=== PATIENT | male | born 1965 | race Caucasian/White ===

== ENCOUNTER 2019-03-20 06:28 | Observation (INO) ==
[2019-03-20] MEDS ORDERED: Ipratropium/Albuterol Neb 3 ML IH ONE (06:34)
--- NOTE | 2019-03-20 06:46 | Emergency Department Note ---
Disposition Clinical Impression: CHF exacerbation Qualifiers: Heart failure type: unspecified Qualified Code(s): I50.9 - Heart failure, unspecified Atrial fibrillation Qualifiers: Atrial fibrillation type: unspecified Qualified Code(s): I48.91 - Unspecified atrial fibrillation Disposition: Admitted As Inpatient Condition: Good Time of Disposition: 09:57 SOB HPI - General Chief Complaint: ED Shortness of Breath/Dyspnea Stated Complaint: JONATHAN Time Seen by Provider: 03/20/19 06:33 Source: patient, family Mode of arrival: ambulatory Limitations: no limitations Nursing Notes Reviewed: Yes Vital Signs Reviewed: Yes - History of Present Illness Ill-appearing 53-year-old male presents by private vehicle for evaluation of shortness of breath. Patient has a history of COPD, atrial fibrillation, hypertension, hyperlipidemia, CABG, DVT, and PE. The patient states that yest erday evening, he had had multiple alcoholic beverages to drink. He also admits to taking a Suboxone that was given to him by a friend. He states that he believes he "passed out at" some point throughout the night. He awoke around 2:30 AM feeling very short of breath, and extremely diaphoretic. He presents diaphoretic, pale, and in mild respiratory distress. He denies any chest pain or pain with inspiration. He complains of nausea but denies any vomiting. He denies any abdominal pain. He denies any pain or swelling of the lower extremities. He does endorse several days worth of a cough that is productive of a greenish colored sputum. This cough and sputum are different than his [facility] COPD status. He is not on home oxygen at this point. He is supposed to be on Eliquis but admits to not taking his medication in several days. He is unsure whether or not he hit his head when he "passed out". His who is in the room was not present and is not able to give details of the event. He does admit to feeling lightheaded currently. Pt Subjective Complaint: shortness of breath Onset (ago): hour(s) Severity: moderate Consistency/Duration: constant Improves with: nothing Worsens with: exertion Known history of: COPD, PE, DVT Associated symptoms: Reports: cough, wheezing, sputum production, diaphoresis, nausea/vomiting (Nausea without vomiting). Denies: chest pain, pain with inspiration, fever, lower extremity pain, hemoptysis Treatment prior to arrival: none Cough Description: Involuntary Cough Frequency: Intermittent - Related Data Home oxygen amount: none Home Medications Medication Instructions Recorded Confirmed Carvedilol [Coreg] 1.5 tab PO BID 03/20/19 03/20/19 Diltiazem CD (24hr) [Cardizem CD] 120 mg PO BID 03/20/19 03/20/19 Furosemide [Lasix] 40 mg PO DAILY 03/20/19 03/20/19 Losartan [Cozaar] 25 mg PO DAILY 03/20/19 03/20/19 Lovastatin [Mevacor] 20 mg PO HS 03/20/19 03/20/19 Nitroglycerin [Nitrostat] 0.4 mg SL Q5MIN PRN 03/20/19 03/20/19 Rivaroxaban [Xarelto] 20 mg PO DAILY 03/20/19 03/20/19 raNITIdine HCl [Zantac] 150 mg PO BID 03/20/19 03/20/19 Allergies Allergy/AdvReac Type Severity Reaction Status Date / Time No Known Allergies Allergy Unverified 03/20/19 06:28 All systems ED: reviewed and negative except as stated. Review of Systems: As Per HPI Constitutional: Denies: fever, chills, weakness, weight change Eyes: Denies: eye pain, eye discharge, vision change ENT ED: Denies: ear pain, throat pain, dental pain, hearing loss, epistaxis, congestion, dysphagia Cardiovascular: Denies: chest pain, palpitations, dyspnea on exertion, edema, syncope Respiratory: Reports: as per HPI, cough, dyspnea, wheezes, sputum production. Denies: hemoptysis, stridor Gastrointestinal: Reports: as per HPI, nausea. Denies: abdominal pain, vomiting, diarrhea, constipation, hematemesis, melena, hematochezia Genitourinary: Denies: urgency, dysuria, frequency, hematuria Musculoskeletal: Denies: back pain, neck pain, arthralgia, myalgia Integumentary: Denies: rash, abrasion, lesions Neurological: Denies: headache, weakness, numbness, paresthesias, confusion, abnormal gait, vertigo Psychiatric: Denies: anxiety, depression, suicidal thoughts, homicidal thoughts, auditory hallucinations, visual hallucinations Endocrine: Denies: fatigue Hematological/Lymphatic: Denies: easy bleeding, easy bruising Allergic/Immunologic: Denies: facial swelling, urticaria Past Medical History - Past Medical History Attestation: Yes The following information was validated with the patient. Source: patient, nursing notes reviewed Medical history: Reports: hypertension, myocardial infarction - Social History Smoking Status: Former smoker Smokeless Tobacco Status: No Alcohol use: Reports: none Drug use: Reports: none Physical Exam - General Limitations: no limitations General appearance: appears intoxicated, other (Pale, diaphoretic) - Head Head exam: atraumatic, normocephalic, normal inspection - Expanded Head Exam Head exam physicial: Absent: laceration, abrasion, contusion, hematoma - Eye Eye exam: Present: normal appearance, PERRL, EOMI - Expanded Eye Exam Pupils: Bilateral: regular, round, reactive, size (3) - ENT ENT exam: mucous membranes moist - Neck Neck exam: Present: normal inspection, full ROM - Chest Chest inspection: Present: normal inspection, symmetric chest wall rise - Respiratory Respiratory exam: Present: respiratory distress (Mild), wheezes (Faint expiratory wheezes noted throughout, more prominent the left lower lobe), ac cessory muscle use (Personal breathing), prolonged expiratory phase, other (Lungs sounds coarse throughout the periphery). Absent: stridor - Cardiovascular Cardiovascular exam: Present: tachycardia, irregular rhythm - Abdominal Exam Abdominal exam: Present: soft, Non-Tender, normal bowel sounds - Extremities Exam Extremities exam: Present: normal inspection, full ROM. Absent: pedal edema, calf tenderness - Neurological Exam Neurological exam: Present: alert, oriented X3 - Psychiatric Psychiatric exam: Present: anxious - Skin Skin exam: Present: intact, diaphoresis, pallor. Absent: cyanosis, erythema, mottled Course Course Narrative: I discussed this patient's case with Dr. Robertson, ED attending. He has had a [id number] evaluation with patient and agrees with admission to the hospital service for an acute exacerbation of congestive heart failure. The patient stated significant improvement after the administration of DuoNeb breathing treatments and IV Lasix. 0950: I spoke with Dr. Gastelum the hospital service who has accepted the patient for admission to the hospitalist care. Vital Signs Temperature 97.5 F L 03/20/19 06:29 Pulse Rate 137 03/20/19 06:29 Respiratory Rate 20 03/20/19 06:29 Blood Pressure 162/116 03/20/19 06:29 O2 Sat by Pulse Oximetry 98 03/20/19 06:29 Temperature 97.5 F L 03/20/19 06:29 Pulse Rate 101 03/20/19 08:38 Respiratory Rate 16 03/20/19 08:38 Blood Pressure 151/112 03/20/19 08:38 O2 Sat by Pulse Oximetry 95 03/20/19 08:38 Oxygen Delivery Oxygen Delivery Room Air Shortness of Breath/Dyspnea - Medical Records Medical records reviewed: Yes I reviewed the patient's medical records. - Lab Data Lab results reviewed: Yes I reviewed the patient's lab results. Lab results narrative: Lab Results 03/20/19 03/20/19 03/20/19 Range/Units 06:34 06:34 06:34 WBC 6.4 (4.3-11.1) K/mcL RBC 4.31 (4.19-5.50) M/mcL Hgb 14.2 (12.9-16.9) g/dL Hct 41.1 (37.5-50.1) % MCV 95.4 (83.0-100.0) fL MCH 32.9 (28.0-33.3) pg MCHC 34.5 (31.6-35.5) g/dL RDW 14.6 H (11.5-14.5) % Plt Count 136 L (140-400) K/mcL MPV 9.7 (9.4-12.4) fL Immature Gran % 0.3 (0-4) % Seg Neutrophils % 64.5 % Lymphocytes % 23.4 % Monocytes % 10.6 % Eosinophils % 0.6 % Basophils % 0.6 % Neutrophils # 4.1 (1.6-8.9) K/mcL Lymphocytes # 1.5 (0.6-4.6) K/mcL Monocytes # 0.7 (0.0-1.3) K/mcL Eosinophils # 0.0 (0.0-0.6) K/mcL Basophils # 0.0 (0.0-0.2) K/mcL PT 12.2 H (9.4-12.1) Seconds INR 1.1 APTT 31.5 (26.0-36.0) Seconds D-Dimer 364 (0-500) ng/mLFEU Sodium 131 L (136-145) mEq/L Potassium 3.9 (3.5-5.1) mEq/L Chloride 91 L (98-107) mEq/L Carbon Dioxide 20 L (23-29) mEq/L BUN 11 (6-20) mg/dL Creatinine 0.75 (0.70-1.30) mg/dL Est GFR ( Amer) > 60 (> 60) Est GFR (Non-Af Amer) > 60 (> 60) BUN/Creatinine Ratio 15 (6-26) Glucose 137 H (70-105) mg/dL POC Glucose (70-99) mg/dL Calculated Osmolality 274 L (280-300) Calcium 9.2 (8.6-10.3) mg/dL Total Bilirubin 1.0 (0.3-1.0) mg/dL Direct Bilirubin 0.3 H (0.0-0.2) mg/dL Indirect Bilirubin 0.7 (0.0-1.2) mg/dL AST 108 H (13-39) Units/L ALT 51 (7-52) Units/L Alkaline Phosphatase 110 H (34-104) Units/L Troponin I 0.05 H* (< 0.04) ng/mL B-Natriuretic Peptide (Less than 100) pg/mL Serum Total Protein 7.7 (6.4-8.9) g/dL Albumin 4.8 (3.5-5.7) g/dL Globulin 2.9 (2.4-3.5) g/dL Albumin/Globulin Ratio 1.7 (1.1-2.2) Urine Color (Yellow) Urine Clarity (Clear) Urine pH (5.0-8.0) pH Units Ur Specific Harper (1.010-1.025) Urine Protein (Neg-Trace) mg/dL Urine Glucose (UA) (Normal) mg/dL Urine Ketones (Negative) mg/dL Urine Blood (Negative) Urine Nitrite (Negative) Urine Bilirubin (Negative) Urine Urobilinogen (Normal) mg/dL Ur Leukocyte Esterase (Negative) Urine Microscopic RBC (0-3) per hpf Urine Microscopic WBC (0-3) per hpf Ur Squamous Epith Cells (None-Few) per lpf Urine Bacteria (None-Few) per hpf Hyaline Casts (None-Few) per lpf Ur Culture Indicated? (NO) Urine Opiates Screen (Hrewfn=963) ng/mL Ur Barbiturates Screen (Liuver=694) ng/mL Ur Phencyclidine Scrn (Cutoff=25) ng/mL Ur Amphetamines Screen (Dccfdm=8700) ng/mL U Benzodiazepines Scrn (Ifjjjd=882) ng/mL Urine Cocaine Screen (Cutoff= 300) ng/mL U Marijuana (THC) Screen (Cutoff = 50) ng/mL Ur Drug Screen Interp Ethyl Alcohol (Less than 10) mg/dL 03/20/19 03/20/19 03/20/19 Range/Units 06:34 06:34 06:42 WBC (4.3-11.1) K/mcL RBC (4.19-5.50) M/mcL Hgb (12.9-16.9) g/dL Hct (37.5-50.1) % MCV (83.0-100.0) fL MCH (28.0-33.3) pg MCHC (31.6-35.5) g/dL RDW (11.5-14.5) % Plt Count (140-400) K/mcL MPV (9.4-12.4) fL Immature Gran % (0-4) % Seg Neutrophils % % Lymphocytes % % Monocytes % % Eosinophils % % Basophils % % Neutrophils # (1.6-8.9) K/mcL Lymphocytes # (0.6-4.6) K/mcL Monocytes # (0.0-1.3) K/mcL Eosinophils # (0.0-0.6) K/mcL Basophils # (0.0-0.2) K/mcL PT (9.4-12.1) Seconds INR APTT (26.0-36.0) Seconds D-Dimer (0-500) ng/mLFEU Sodium (136-145) mEq/L Potassium (3.5-5.1) mEq/L Chloride (98-107) mEq/L Carbon Dioxide (23-29) mEq/L BUN (6-20) mg/dL Creatinine (0.70-1.30) mg/dL Est GFR ( Amer) (> 60) Est GFR (Non-Af Amer) (> 60) BUN/Creatinine Ratio (6-26) Glucose (70-105) mg/dL POC Glucose 116 H (70-99) mg/dL Calculated Osmolality (280-300) Calcium (8.6-10.3) mg/dL Total Bilirubin (0.3-1.0) mg/dL Direct Bilirubin (0.0-0.2) mg/dL Indirect Bilirubin (0.0-1.2) mg/dL AST (13-39) Units/L ALT (7-52) Units/L Alkaline Phosphatase (34-104) Units/L Troponin I (< 0.04) ng/mL B-Natriuretic Peptide 643 H (Less than 100) pg/mL Serum Total Protein (6.4-8.9) g/dL Albumin (3.5-5.7) g/dL Globulin (2.4-3.5) g/dL Albumin/Globulin Ratio (1.1-2.2) Urine Color (Yellow) Urine Clarity (Clear) Urine pH (5.0-8.0) pH Units Ur Specific Harper (1.010-1.025) Urine Protein (Neg-Trace) mg/dL Urine Glucose (UA) (Normal) mg/dL Urine Ketones (Negative) mg/dL Urine Blood (Negative) Urine Nitrite (Negative) Urine Bilirubin (Negative) Urine Urobilinogen (Normal) mg/dL Ur Leukocyte Esterase (Negative) Urine Microscopic RBC (0-3) per hpf Urine Microscopic WBC (0-3) per hpf Ur Squamous Epith Cells (None-Few) per lpf Urine Bacteria (None-Few) per hpf Hyaline Casts (None-Few) per lpf Ur Culture Indicated? (NO) Urine Opiates Screen (Djcjjh=504) ng/mL Ur Barbiturates Screen (Ohmwtb=399) ng/mL Ur Phencyclidine Scrn (Cutoff=25) ng/mL Ur Amphetamines Screen (Hjgloy=5957) ng/mL U Benzodiazepines Scrn (Agqdnj=292) ng/mL Urine Cocaine Screen (Cutoff= 300) ng/mL U Marijuana (THC) Screen (Cutoff = 50) ng/mL Ur Drug Screen Interp Ethyl Alcohol 129 H (Less than 10) mg/dL 03/20/19 03/20/19 Range/Units 08:03 08:03 WBC (4.3-11.1) K/mcL RBC (4.19-5.50) M/mcL Hgb (12.9-16.9) g/dL Hct (37.5-50.1) % MCV (83.0-100.0) fL MCH (28.0-33.3) pg MCHC (31.6-35.5) g/dL RDW (11.5-14.5) % Plt Count (140-400) K/mcL MPV (9.4-12.4) fL Immature Gran % (0-4) % Seg Neutrophils % % Lymphocytes % % Monocytes % % Eosinophils % % Basophils % % Neutrophils # (1.6-8.9) K/mcL Lymphocytes # (0.6-4.6) K/mcL Monocytes # (0.0-1.3) K/mcL Eosinophils # (0.0-0.6) K/mcL Basophils # (0.0-0.2) K/mcL PT (9.4-12.1) Seconds INR APTT (26.0-36.0) Seconds D-Dimer (0-500) ng/mLFEU Sodium (136-145) mEq/L Potassium (3.5-5.1) mEq/L Chloride (98-107) mEq/L Carbon Dioxide (23-29) mEq/L BUN (6-20) mg/dL Creatinine (0.70-1.30) mg/dL Est GFR ( Amer) (> 60) Est GFR (Non-Af Amer) (> 60) BUN/Creatinine Ratio (6-26) Glucose (70-105) mg/dL POC Glucose (70-99) mg/dL Calculated Osmolality (280-300) Calcium (8.6-10.3) mg/dL Total Bilirubin (0.3-1.0) mg/dL Direct Bilirubin (0.0-0.2) mg/dL Indirect Bilirubin (0.0-1.2) mg/dL AST (13-39) Units/L ALT (7-52) Units/L Alkaline Phosphatase (34-104) Units/L Troponin I (< 0.04) ng/mL B-Natriuretic Peptide (Less than 100) pg/mL Serum Total Protein (6.4-8.9) g/dL Albumin (3.5-5.7) g/dL Globulin (2.4-3.5) g/dL Albumin/Globulin Ratio (1.1-2.2) Urine Color Dark Yellow (Yellow) Urine Clarity Clear (Clear) Urine pH 5.5 (5.0-8.0) pH Units Ur Specific Harper 1.008 L (1.010-1.025) Urine Protein 100 H (Neg-Trace) mg/dL Urine Glucose (UA) Normal (Normal) mg/dL Urine Ketones Trace H (Negative) mg/dL Urine Blood Trace H (Negative) Urine Nitrite Negative (Negative) Urine Bilirubin Negative (Negative) Urine Urobilinogen Normal (Normal) mg/dL Ur Leukocyte Esterase Negative (Negative) Urine Microscopic RBC 0-3 (0-3) per hpf Urine Microscopic WBC 0-3 (0-3) per hpf Ur Squamous Epith Cells Moderate H (None-Few) per lpf Urine Bacteria None Seen (None-Few) per hpf Hyaline Casts None Seen (None-Few) per lpf Ur Culture Indicated? NO (NO) Urine Opiates Screen Negative (Oqjhuz=053) ng/mL Ur Barbiturates Screen Negative (Sriacd=023) ng/mL Ur Phencyclidine Scrn Negative (Cutoff=25) ng/mL Ur Amphetamines Screen Negative (Zmhpkp=1932) ng/mL U Benzodiazepines Scrn Negative (Qwgqen=139) ng/mL Urine Cocaine Screen Negative (Cutoff= 300) ng/mL U Marijuana (THC) Screen Positive H (Cutoff = 50) ng/mL Ur Drug Screen Interp See Below Ethyl Alcohol (Less than 10) mg/dL Result diagrams: 03/20/19 06:34 03/20/19 06:34 Lab Results 03/20/19 03/20/19 03/20/19 Range/Units 06:34 06:34 06:34 WBC 6.4 (4.3-11.1) K/mcL RBC 4.31 (4.19-5.50) M/mcL Hgb 14.2 (12.9-16.9) g/dL Hct 41.1 (37.5-50.1) % MCV 95.4 (83.0-100.0) fL MCH 32.9 (28.0-33.3) pg MCHC 34.5 (31.6-35.5) g/dL RDW 14.6 H (11.5-14.5) % Plt Count 136 L (140-400) K/mcL MPV 9.7 (9.4-12.4) fL Immature Gran % 0.3 (0-4) % Seg Neutrophils % 64.5 % Lymphocytes % 23.4 % Monocytes % 10.6 % Eosinophils % 0.6 % Basophils % 0.6 % Neutrophils # 4.1 (1.6-8.9) K/mcL Lymphocytes # 1.5 (0.6-4.6) K/mcL Monocytes # 0.7 (0.0-1.3) K/mcL Eosinophils # 0.0 (0.0-0.6) K/mcL Basophils # 0.0 (0.0-0.2) K/mcL PT 12.2 H (9.4-12.1) Seconds INR 1.1 APTT 31.5 (26.0-36.0) Seconds D-Dimer 364 (0-500) ng/mLFEU Sodium 131 L (136-145) mEq/L Potassium 3.9 (3.5-5.1) mEq/L Chloride 91 L (98-107) mEq/L Carbon Dioxide 20 L (23-29) mEq/L BUN 11 (6-20) mg/dL Creatinine 0.75 (0.70-1.30) mg/dL Est GFR ( Amer) > 60 (> 60) Est GFR (Non-Af Amer) > 60 (> 60) BUN/Creatinine Ratio 15 (6-26) Glucose 137 H (70-105) mg/dL POC Glucose (70-99) mg/dL Calculated Osmolality 274 L (280-300) Calcium 9.2 (8.6-10.3) mg/dL Total Bilirubin 1.0 (0.3-1.0) mg/dL Direct Bilirubin 0.3 H (0.0-0.2) mg/dL Indirect Bilirubin 0.7 (0.0-1.2) mg/dL AST 108 H (13-39) Units/L ALT 51 (7-52) Units/L Alkaline Phosphatase 110 H (34-104) Units/L Troponin I 0.05 H* (< 0.04) ng/mL B-Natriuretic Peptide (Less than 100) pg/mL Serum Total Protein 7.7 (6.4-8.9) g/dL Albumin 4.8 (3.5-5.7) g/dL Globulin 2.9 (2.4-3.5) g/dL Albumin/Globulin Ratio 1.7 (1.1-2.2) Urine Color (Yellow) Urine Clarity (Clear) Urine pH (5.0-8.0) pH Units Ur Specific Harper (1.010-1.025) Urine Protein (Neg-Trace) mg/dL Urine Glucose (UA) (Normal) mg/dL Urine Ketones (Negative) mg/dL Urine Blood (Negative) Urine Nitrite (Negative) Urine Bilirubin (Negative) Urine Urobilinogen (Normal) mg/dL Ur Leukocyte Esterase (Negative) Urine Microscopic RBC (0-3) per hpf Urine Microscopic WBC (0-3) per hpf Ur Squamous Epith Cells (None-Few) per lpf Urine Bacteria (None-Few) per hpf Hyaline Casts (None-Few) per lpf Ur Culture Indicated? (NO) Urine Opiates Screen (Dbjayp=068) ng/mL Ur Barbiturates Screen (Spnxyu=498) ng/mL Ur Phencyclidine Scrn (Cutoff=25) ng/mL Ur Amphetamines Screen (Bsduui=0408) ng/mL U Benzodiazepines Scrn (Uviueq=945) ng/mL Urine Cocaine Screen (Cutoff= 300) ng/mL U Marijuana (THC) Screen (Cutoff = 50) ng/mL Ur Drug Screen Interp Ethyl Alcohol (Less than 10) mg/dL 03/20/19 03/20/19 03/20/19 Range/Units 06:34 06:34 06:42 WBC (4.3-11.1) K/mcL RBC (4.19-5.50) M/mcL Hgb (12.9-16.9) g/dL Hct (37.5-50.1) % MCV (83.0-100.0) fL MCH (28.0-33.3) pg MCHC (31.6-35.5) g/dL RDW (11.5-14.5) % Plt Count (140-400) K/mcL MPV (9.4-12.4) fL Immature Gran % (0-4) % Seg Neutrophils % % Lymphocytes % % Monocytes % % Eosinophils % % Basophils % % Neutrophils # (1.6-8.9) K/mcL Lymphocytes # (0.6-4.6) K/mcL Monocytes # (0.0-1.3) K/mcL Eosinophils # (0.0-0.6) K/mcL Basophils # (0.0-0.2) K/mcL PT (9.4-12.1) Seconds INR APTT (26.0-36.0) Seconds D-Dimer (0-500) ng/mLFEU Sodium (136-145) mEq/L Potassium (3.5-5.1) mEq/L Chloride (98-107) mEq/L Carbon Dioxide (23-29) mEq/L BUN (6-20) mg/dL Creatinine (0.70-1.30) mg/dL Est GFR ( Amer) (> 60) Est GFR (Non-Af Amer) (> 60) BUN/Creatinine Ratio (6-26) Glucose (70-105) mg/dL POC Glucose 116 H (70-99) mg/dL Calculated Osmolality (280-300) Calcium (8.6-10.3) mg/dL Total Bilirubin (0.3-1.0) mg/dL Direct Bilirubin (0.0-0.2) mg/dL Indirect Bilirubin (0.0-1.2) mg/dL AST (13-39) Units/L ALT (7-52) Units/L Alkaline Phosphatase (34-104) Units/L Troponin I (< 0.04) ng/mL B-Natriuretic Peptide 643 H (Less than 100) pg/mL Serum Total Protein (6.4-8.9) g/dL Albumin (3.5-5.7) g/dL Globulin (2.4-3.5) g/dL Albumin/Globulin Ratio (1.1-2.2) Urine Color (Yellow) Urine Clarity (Clear) Urine pH (5.0-8.0) pH Units Ur Specific Harper (1.010-1.025) Urine Protein (Neg-Trace) mg/dL Urine Glucose (UA) (Normal) mg/dL Urine Ketones (Negative) mg/dL Urine Blood (Negative) Urine Nitrite (Negative) Urine Bilirubin (Negative) Urine Urobilinogen (Normal) mg/dL Ur Leukocyte Esterase (Negative) Urine Microscopic RBC (0-3) per hpf Urine Microscopic WBC (0-3) per hpf Ur Squamous Epith Cells (None-Few) per lpf Urine Bacteria (None-Few) per hpf Hyaline Casts (None-Few) per lpf Ur Culture Indicated? (NO) Urine Opiates Screen (Bypesx=997) ng/mL Ur Barbiturates Screen (Sgrghf=035) ng/mL Ur Phencyclidine Scrn (Cutoff=25) ng/mL Ur Amphetamines Screen (Yawkhr=8578) ng/mL U Benzodiazepines Scrn (Zdmgpj=860) ng/mL Urine Cocaine Screen (Cutoff= 300) ng/mL U Marijuana (THC) Screen (Cutoff = 50) ng/mL Ur Drug Screen Interp Ethyl Alcohol 129 H (Less than 10) mg/dL 03/20/19 03/20/19 Range/Units 08:03 08:03 WBC (4.3-11.1) K/mcL RBC (4.19-5.50) M/mcL Hgb (12.9-16.9) g/dL Hct (37.5-50.1) % MCV (83.0-100.0) fL MCH (28.0-33.3) pg MCHC (31.6-35.5) g/dL RDW (11.5-14.5) % Plt Count (140-400) K/mcL MPV (9.4-12.4) fL Immature Gran % (0-4) % Seg Neutrophils % % Lymphocytes % % Monocytes % % Eosinophils % % Basophils % % Neutrophils # (1.6-8.9) K/mcL Lymphocytes # (0.6-4.6) K/mcL Monocytes # (0.0-1.3) K/mcL Eosinophils # (0.0-0.6) K/mcL Basophils # (0.0-0.2) K/mcL PT (9.4-12.1) Seconds INR APTT (26.0-36.0) Seconds D-Dimer (0-500) ng/mLFEU Sodium (136-145) mEq/L Potassium (3.5-5.1) mEq/L Chloride (98-107) mEq/L Carbon Dioxide (23-29) mEq/L BUN (6-20) mg/dL Creatinine (0.70-1.30) mg/dL Est GFR ( Amer) (> 60) Est GFR (Non-Af Amer) (> 60) BUN/Creatinine Ratio (6-26) Glucose (70-105) mg/dL POC Glucose (70-99) mg/dL Calculated Osmolality (280-300) Calcium (8.6-10.3) mg/dL Total Bilirubin (0.3-1.0) mg/dL Direct Bilirubin (0.0-0.2) mg/dL Indirect Bilirubin (0.0-1.2) mg/dL AST (13-39) Units/L ALT (7-52) Units/L Alkaline Phosphatase (34-104) Units/L Troponin I (< 0.04) ng/mL B-Natriuretic Peptide (Less than 100) pg/mL Serum Total Protein (6.4-8.9) g/dL Albumin (3.5-5.7) g/dL Globulin (2.4-3.5) g/dL Albumin/Globulin Ratio (1.1-2.2) Urine Color Dark Yellow (Yellow) Urine Clarity Clear (Clear) Urine pH 5.5 (5.0-8.0) pH Units Ur Specific Harper 1.008 L (1.010-1.025) Urine Protein 100 H (Neg-Trace) mg/dL Urine Glucose (UA) Normal (Normal) mg/dL Urine Ketones Trace H (Negative) mg/dL Urine Blood Trace H (Negative) Urine Nitrite Negative (Negative) Urine Bilirubin Negative (Negative) Urine Urobilinogen Normal (Normal) mg/dL Ur Leukocyte Esterase Negative (Negative) Urine Microscopic RBC 0-3 (0-3) per hpf Urine Microscopic WBC 0-3 (0-3) per hpf Ur Squamous Epith Cells Moderate H (None-Few) per lpf Urine Bacteria None Seen (None-Few) per hpf Hyaline Casts None Seen (None-Few) per lpf Ur Culture Indicated? NO (NO) Urine Opiates Screen Negative (Wsmbqo=438) ng/mL Ur Barbiturates Screen Negative (Tqibku=660) ng/mL Ur Phencyclidine Scrn Negative (Cutoff=25) ng/mL Ur Amphetamines Screen Negative (Rrmkue=0707) ng/mL U Benzodiazepines Scrn Negative (Hpszgw=641) ng/mL Urine Cocaine Screen Negative (Cutoff= 300) ng/mL U Marijuana (THC) Screen Positive H (Cutoff = 50) ng/mL Ur Drug Screen Interp See Below Ethyl Alcohol (Less than 10) mg/dL - Radiology Data Radiology results reviewed: Yes I reviewed the patient's radiology results. Chest X-Ray 03/20/19 06:34 IMPRESSION: Postsurgical changes. Mild cardiomegaly. Prominent perihilar markings suggesting mild vascular congestion. No gross effusion or extrapleural air is noted. D/ / Rafaela Hinton MD / Rafaela Hinton MD Interpreting Provider: Rafaela Hinton MD Cervical Spine CT 03/20/19 06:40 IMPRESSION: No acute abnormality of the cervical spine. D/ / Randall Sutherland MD / Randall Sutherland MD Interpreting Provider: Randall Sutherland MD Head CT 03/20/19 06:40 IMPRESSION: No acute intracranial abnormality. D/ / 03/20/2019 08:11:55 Ronny Samaniego MD / derrick Interpreting Provider: Ronny Samaniego MD - EKG Data EKG attestation: Yes I reviewed and interpreted this EKG. EKG results narrative: EKG reviewed by Dr. Dawn as well. EKG shows atrial fibrillation with rapid ventricular response at 147 bpm. QRS duration 105, QT/QTc interval 306/479. No significant ST elevations noted. Diffuse ST depression throughout however appears essentially unchanged from prior EKG dated from 10/29/15. Repeat EKG performed at 0802 hrs. EKG still shows atrial fibrillation with an improved heart rate of 113 bpm. QRS duration 110, QT/QTc interval 347/476. Much better waveform on this EKG. Again, diffuse ST segment depressions however these appear unchanged from prior EKGs. Attestation Statement - Attestation Attestation: Medical screening examination/treatment/procedure(s) were conducted as a shared visit with non-physician practitioner(s) and myself. I personally evaluated the patient during the encounter.EKG reviewed with PA. Agree with documentation. Patient presenting to the emergency department for shortness of breath. Patient significant past mental history including COPD, atrial fibrillation, hypertension, previous CABG, PE. Supposed to be on Zaroxolyn. Patient concern for possible syncopal event throughout the night. Patient did admit to drinking. Awoke diaphoretic and short of breath. 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 Blood work was obtained. Patient did have significant elevated alcohol as well as a BNP and concern for pulmonary vascular congestion on chest x-ray. Initial presenting heart rate was A. fib RVR with a heart rate in the 140s which is now 86 on reevaluation. Patient is undergoing further admission for further evaluation and management.
[2019-03-20 06:48] LABS: White Blood Count 6.4 K/mcL (4.3-11.1)
[2019-03-20 06:49] LABS: Basophils % 0.6 %; Eosinophils % 0.6 %; Hematocrit 41.1 % (37.5-50.1); Hemoglobin 14.2 g/dL (12.9-16.9); Immature Granulocytes % 0.3 % (0-4); Lymphocytes # 1.5 K/mcL (0.6-4.6); Lymphocytes % 23.4 %; Mean Corpuscular HGB Conc 34.5 g/dL (31.6-35.5); Mean Corpuscular Hemoglobin 32.9 pg (28.0-33.3); Mean Corpuscular Volume 95.4 fL (83.0-100.0); Mean Platelet Volume 9.7 fL (9.4-12.4); Monocytes # 0.7 K/mcL (0.0-1.3); Monocytes % 10.6 %; Neutrophils # 4.1 K/mcL (1.6-8.9); Platelet Count 136 K/mcL (140-400); Red Blood Count 4.31 M/mcL (4.19-5.50); Red Cell Distribution Width 14.6 % (11.5-14.5); Segmented Neutrophils % 64.5 %
[2019-03-20 06:56] LABS: INR 1.1; Prothrombin Time 12.2 Seconds (9.4-12.1)
[2019-03-20 06:58] LABS: Activated Partial Thrombo Time 31.5 Seconds (26.0-36.0)
[2019-03-20] MEDS ORDERED: Furosemide 40 MG/4 ML VIAL IVP ONE (07:44)
[2019-03-20 08:00] LABS: Troponin I 0.05 ng/mL (< 0.04)
[2019-03-20] MEDS ORDERED: Aspirin 81 MG TAB.CHEW PO ONE (08:24)
[2019-03-20 08:25] LABS: Bilirubin,Urine Negative (Negative); Blood,Urine Trace (Negative); Clarity,Urine Clear (Clear); Color,Urine Dark Yellow (Yellow); Glucose,Urine (UA) Normal (Normal); Ketones,Urine Trace mg/dL (Negative); Leukocyte Esterase,Urine Negative (Negative); Nitrite,Urine Negative (Negative); PH,Urine 5.5 pH Units (5.0-8.0); Protein,Urine 100 mg/dL (Neg-Trace); Specific Gravity,Urine 1.008 (1.010-1.025); Urobilinogen,Urine Normal (Normal)
[2019-03-20 08:26] LABS: Bacteria,Urine None Seen per hpf (None-Few); Hyaline Casts,Urine None Seen per lpf (None-Few); RBC,Urine 0-3 per hpf (0-3); Squamous Epithelial Cell,Urine Moderate per lpf (None-Few); WBC,Urine 0-3 per hpf (0-3)
[2019-03-20 08:51] LABS: Alanine Aminotransferase 51 Units/L (7-52); Albumin 4.8 g/dL (3.5-5.7); Albumin/Globulin Ratio 1.7 (1.1-2.2); Alkaline Phosphatase 110 Units/L (34-104); Aspartate Amino Transferase 108 Units/L (13-39); BUN/Creatinine Ratio 15 (6-26); Bilirubin,Direct 0.3 mg/dL (0.0-0.2); Bilirubin,Indirect 0.7 mg/dL (0.0-1.2); Blood Urea Nitrogen 11 mg/dL (6-20); Calcium 9.2 mg/dL (8.6-10.3); Carbon Dioxide 20 mEq/L (23-29); Chloride 91 mEq/L (98-107); Globulin 2.9 g/dL (2.4-3.5); Glucose 137 mg/dL (70-105); Osmolality,Calculated 274 (280-300); Potassium 3.9 mEq/L (3.5-5.1); Sodium 131 mEq/L (136-145); Total Protein 7.7 g/dL (6.4-8.9); eGFR For African Americans > 60 (> 60); eGFR For Non-African Americans > 60 (> 60)
[2019-03-20 09:31] LABS: Amphetamine Screen,Urine Negative ng/mL (Cutoff=1000); Barbiturate Screen,Urine Negative ng/mL (Cutoff=200); Benzodiazepines Screen,Urine Negative ng/mL (Cutoff=200); Cannabinoid Screen,Urine Positive ng/mL (Cutoff = 50); Cocaine Screen,Urine Negative ng/mL (Cutoff= 300); Opiate Screen,Urine Negative ng/mL (Cutoff=300); Phencyclidine Screen,Urine Negative ng/mL (Cutoff=25)
[2019-03-20] MEDS ORDERED: Nitroglycerin 0.4 MG TAB.SUBL SL PRN (09:53)
[2019-03-20] MEDS: *HR* Rivaroxaban 10 MG TABLET PO SCH (11:58)
[2019-03-20] MEDS: Diltiazem CD (24hr) 120 MG CAPSULE PO SCH ×2 (11:59→21:09)
[2019-03-20] MEDS ORDERED: *HR* LORazepam 2 MG/ML VIAL IVP PRN ×3 (12:53)
[2019-03-20] MEDS ORDERED: Naloxone 0.4 MG/ML INJ IVP PRN (12:59)
[2019-03-20] MEDS: Thiamine (B-1) 100 MG, Folic Acid 1 MG, MVI, adult with vitamin K 10 ML in 0.9 % Sodi... IVPB SCH (17:23)
--- NOTE | 2019-03-20 18:08 | Internal Med History&Physical ---
Date of Encounter: 03/20/19 Time of Encounter: 07:00 Internal Medicine - H&P: HPI History of present illness: 53-year-old male presents by private vehicle for evaluation of shortness of breath. Patient has a history of COPD, atrial fibrillation, hypertension, hyperlipidemia, CABG, DVT, and PE. Who presented progressive worsening of shortness of breath that started after midnight associated with sweating, nausea no vomiting. The patient stated that he consumed large amount of alcohol in ad dition to his Suboxone prior to going to bed and pretty much felt that he passed out. The patient denies chest shortness chest pain, progressive worsening of lower extremity edema, abdominal pain and diarrhea. The patient also reported that she been having productive cough of greenish sputum for the last several days. He stated that he is compliant with his medication For the blood thinner which he forgot several days in a row. On presentation the patient has an A. fib with rapid ventricular rate at rate of 137, platelet he did become control spontaneously, his chest x-ray revealed mild cardiomegaly, prominent perihilar markings suggesting mild vascular congestion, no gross effusion or extrapleural air. The patient was admitted for further evaluation and management of congestive heart failure exacerbation. Past Med Surg Social Fam HX - Past Medical History Medical history: hypertension, myocardial infarction Psychiatric history: no psych history - Past Surgical History Additional surgical history: open heart sx.--- unsure why - Social History Smoking Status: Former smoker Smokeless Tobacco Status: No Alcohol use: none Drug use: none - Family History Mother History Unknown: Yes Internal Medicine - H&P: Meds Carvedilol [Coreg] 37.5 tab PO BID 03/20/19 [History] Furosemide [Lasix] 40 mg PO DAILY 03/20/19 [History] Losartan [Cozaar] 25 mg PO DAILY 03/20/19 [History] Lovastatin [Mevacor] 20 mg PO DAILY 03/20/19 [History] Nitroglycerin [Nitrostat] 0.4 mg SL Q5MIN PRN 03/20/19 [History] Rivaroxaban [Xarelto] 20 mg PO DAILY 03/20/19 [History] raNITIdine HCl [Zantac] 150 mg PO BID 03/20/19 [History] Albuterol Sulfate [Albuterol Inhaler] 2 puff IH Q4-6H PRN 03/21/19 [History] dilTIAZem HCl [Diltiazem 24Hr ER] 120 mg PO BID 03/21/19 [History] Azithromycin [Zithromax] 250 mg PO DAILY #3 tablet 03/22/19 [Rx] Ipratropium/Albuterol Neb [Duoneb] 3 ml IH Q4HR #100 vial.neb 03/22/19 [Rx] Tiotropium [Spiriva] 18 mcg IH DAILYR #1 inh 03/22/19 [Rx] predniSONE [PredniSONE] 40 mg PO DAILY #3 tablet 03/22/19 [Rx] Allergy/AdvReac Type Severity Reaction Status Date / Time No Known Allergies Allergy Verified 03/21/19 17:36 All Systems PM: A 10-system review of systems was performed and is negative for pertinent findings except as documented above in the HPI. - Constitutional Vitals: Temp Pulse Resp BP Pulse Ox 98.1 F 82 22 154/100 96 03/20/19 17:19 03/20/19 17:19 03/20/19 17:19 03/20/19 17:19 03/20/19 17:19 General appearance: Present: A&O X 3 Exam: ` - Head Head exam: Present: atraumatic, normocephalic - Neck Neck exam general surgery: Present: supple, trachea midline. Absent: lymphadenopathy - Respiratory Respiratory exam: Present: rales. Absent: accessory muscle use, rhonchi, wheezes - Cardiovascular Cardiovascular exam: Present: RRR, +S1, +S2. Absent: diastolic murmur, gallop, rubs, systolic murmur - GI/Abdominal GI/Abdominal exam: Present: normal bowel sounds, soft, no peritoneal signs. Absent: distended, tenderness - Extremities Exam Extremities exam: Present: pedal edema Internal Med - H&P Results - Labs CBC & Chem 7: 03/22/19 03:57 03/22/19 03:57 Labs: Short CBC 03/20/19 Range/Units 06:34 WBC 6.4 (4.3-11.1) K/mcL Hgb 14.2 (12.9-16.9) g/dL Hct 41.1 (37.5-50.1) % Plt Count 136 L (140-400) K/mcL Neutrophils # 4.1 (1.6-8.9) K/mcL BMP 03/20/19 06:34 Sodium 131 L Potassium 3.9 Chloride 91 L Carbon Dioxide 20 L BUN 11 Creatinine 0.75 Glucose 137 H Calcium 9.2 Cardiac Enzymes 03/20/19 03/20/19 Range/Units 06:34 13:09 Troponin I 0.05 H* 0.05 H* (< 0.04) ng/mL Liver Function 03/20/19 Range/Units 06:34 Total Bilirubin 1.0 (0.3-1.0) mg/dL Direct Bilirubin 0.3 H (0.0-0.2) mg/dL AST 108 H (13-39) Units/L ALT 51 (7-52) Units/L Alkaline Phosphatase 110 H (34-104) Units/L Albumin 4.8 (3.5-5.7) g/dL Urine 03/20/19 Range/Units 08:03 Urine Color Dark Yellow (Yellow) Urine Clarity Clear (Clear) Urine pH 5.5 (5.0-8.0) pH Units Ur Specific [place] 1.008 L (1.010-1.025) Urine Protein 100 H (Neg-Trace) mg/dL Urine Glucose (UA) Normal (Normal) mg/dL - Impressions ITS Impressions Chest X-Ray 03/20/19 06:34 IMPRESSION: Postsurgical changes. Mild cardiomegaly. Prominent perihilar markings suggesting mild vascular congestion. No gross effusion or extrapleural air is noted. D/ / Rafaela Hinton MD / Rafaela Hinton MD Interpreting Provider: Rafaela Hinton MD Cervical Spine CT 03/20/19 06:40 IMPRESSION: No acute abnormality of the cervical spine. D/ / Randall Sutherland MD / Randall Sutherland MD Interpreting Provider: Randall Sutherland MD Head CT 03/20/19 06:40 IMPRESSION: No acute intracranial abnormality. D/ / 03/20/2019 08:11:55 Ronny Samaniego MD / derrick Interpreting Provider: Ronny Samaniego MD - Assessment and Plan (1) CHF exacerbation Status: Acute Assessment and plan: - SOB due to CHF exacerbation due to ?? Noncompliance R/O ischemia DD: *Bronchitis *Pneumonia PLAN: - CPP x 1 more, 8 hr after the 1st one - EKG in AM - ASA - O2 to keep SpO2 > 92% - Lasix 40 mg IV BID - Aerosols UD q 4 hr - UA - 2D Echo - CBCD, BMP in AM - Fasting lipids Qualifiers: Heart failure type: systolic Qualified Code(s): I50.23 - Acute on chronic systolic (congestive) heart failure (2) Atrial fibrillation Status: Chronic Assessment and plan: The patient was in RVR on arrival, however his rate was controlled spontaneously, we will resume his home medication including chronic anti- coagulation with Xarelto Qualifiers: Atrial fibrillation type: chronic Qualified Code(s): I48.2 - Chronic atrial fibrillation (3) Chronic coronary artery disease Status: Chronic Assessment and plan: The patient is chest pain-free, troponin first set is normal , we will continue home medication, (4) Hypertension Status: Chronic Assessment and plan: We will continue home antihypertensive, and continue to monitor blood pressure while inpatient and adjust regimen accordingly Qualifiers: Hypertension type: essential hypertension Qualified Code(s): I10 - Essential (primary) hypertension (5) Alcohol abuse Status: Chronic Assessment and plan: We will start the patient on SIWA protocol. (6) Hyponatremia Status: Acute Assessment and plan: Most likely hypovolemic hyponatremia in the setting of congestive heart failure to volume overload, will intensify diuretic regimen and repeat sodium level - Time Spent With Patient Total time spent is greater than 50% in coordination of care (as documented) at patient's floor/unit and/or counseling patient:
[2019-03-20] MEDS: Furosemide 40 MG/4 ML VIAL IVP SCH (21:09)
[2019-03-20] MEDS: Famotidine 20 MG TABLET PO SCH (21:09)
[2019-03-20] MEDS ORDERED: Melatonin 3 MG TABLET PO PRN (23:38)
[2019-03-21 02:39] LABS: Basophils # 0.1 K/mcL (0.0-0.2); Basophils % 1.2 %; Eosinophils # 0.1 K/mcL (0.0-0.6); Eosinophils % 1.9 %; Hemoglobin 15.1 g/dL (12.9-16.9); Immature Granulocytes % 0.2 % (0-4); Lymphocytes # 0.9 K/mcL (0.6-4.6); Lymphocytes % 21.7 %; Mean Corpuscular HGB Conc 35.1 g/dL (31.6-35.5); Mean Corpuscular Hemoglobin 33.4 pg (28.0-33.3); Mean Corpuscular Volume 95.1 fL (83.0-100.0); Monocytes # 0.3 K/mcL (0.0-1.3); Monocytes % 7.9 %; Neutrophils # 2.9 K/mcL (1.6-8.9); Platelet Count 102 K/mcL (140-400); Red Blood Count 4.52 M/mcL (4.19-5.50); Red Cell Distribution Width 14.8 % (11.5-14.5); Segmented Neutrophils % 67.1 %; White Blood Count 4.3 K/mcL (4.3-11.1)
[2019-03-21 02:55] LABS: INR 1.6; Prothrombin Time 17.9 Seconds (9.4-12.1)
[2019-03-21 02:58] LABS: Activated Partial Thrombo Time 36.4 Seconds (26.0-36.0)
[2019-03-21 03:01] LABS: Alanine Aminotransferase 51 Units/L (7-52); Albumin 4.4 g/dL (3.5-5.7); Albumin/Globulin Ratio 1.4 (1.1-2.2); Alkaline Phosphatase 107 Units/L (34-104); Aspartate Amino Transferase 101 Units/L (13-39); BUN/Creatinine Ratio 12 (6-26); Bilirubin,Total 2.2 mg/dL (0.3-1.0); Blood Urea Nitrogen 8 mg/dL (6-20); Calcium 9.3 mg/dL (8.6-10.3); Carbon Dioxide 29 mEq/L (23-29); Chloride 93 mEq/L (98-107); Cholesterol 194 mg/dL (< 200); Globulin 3.1 g/dL (2.4-3.5); Glucose 113 mg/dL (70-105); HDL Cholesterol 97 mg/dL (40-59); LDL Cholesterol,Calculated 78 mg/dL (0-99); Magnesium 1.8 mg/dL (1.6-2.6); Osmolality,Calculated 275 (280-300); Potassium 3.3 mEq/L (3.5-5.1); Sodium 133 mEq/L (136-145); Total Protein 7.5 g/dL (6.4-8.9); Triglycerides 94 mg/dL (< 150); eGFR For African Americans > 60 (> 60); eGFR For Non-African Americans > 60 (> 60)
[2019-03-21] MEDS: *HR* Rivaroxaban 10 MG TABLET PO SCH (08:08)
[2019-03-21] MEDS: Diltiazem CD (24hr) 120 MG CAPSULE PO SCH ×2 (08:08→20:08)
[2019-03-21] MEDS: Famotidine 20 MG TABLET PO SCH ×2 (08:08→20:08)
[2019-03-21] MEDS: Furosemide 40 MG/4 ML VIAL IVP SCH (08:08)
[2019-03-21] MEDS ORDERED: Perflutren Lipid Microsphere 1.3 ML in 0.9 % Sodium Chloride 8.7 ML IVP ONE (09:17)
--- NOTE | 2019-03-21 09:22 | Internal Med Progress Note ---
<Binh Tuttle - Last Filed: 03/21/19 17:04> Hospitalist Progress Note - Encounter Date of Encounter: 03/21/19 - Exam Vitals: Temp Pulse Resp BP Pulse Ox 98.3 F 88 17 133/65 92 03/21/19 15:25 03/21/19 15:25 03/21/19 15:25 03/21/19 15:25 03/21/19 15:25 - Assessment and Plan (1) CHF exacerbation Current Visit: Yes Status: Acute (2) Atrial fibrillation Current Visit: Yes Status: Acute (3) Chronic coronary artery disease Current Visit: Yes Status: Chronic (4) Hypertension Current Visit: Yes Status: Chronic (5) Alcohol abuse Current Visit: Yes Status: Chronic (6) Hyponatremia Current Visit: Yes Status: Acute (7) Hypokalemia Current Visit: Yes Status: Acute (8) COPD with acute exacerbation Current Visit: Yes Status: Acute - Time Spent with Patient Total time spent is greater than 50% in coordination of care (as documented) at patient's floor/unit and/or counseling patient: Internal Medicine: Result - Labs CBC & Chem 7: 03/21/19 02:30 03/21/19 02:30 Labs: Short CBC 03/21/19 Range/Units 02:30 WBC 4.3 (4.3-11.1) K/mcL Hgb 15.1 (12.9-16.9) g/dL Hct 43.0 (37.5-50.1) % Plt Count 102 L (140-400) K/mcL Neutrophils # 2.9 (1.6-8.9) K/mcL BMP 03/21/19 02:30 Sodium 133 L Potassium 3.3 L Chloride 93 L Carbon Dioxide 29 BUN 8 Creatinine 0.67 L Glucose 113 H Calcium 9.3 Cardiac Enzymes 03/20/19 03/21/19 Range/Units 18:59 02:30 Troponin I 0.03 0.03 (< 0.04) ng/mL Liver Function 03/21/19 Range/Units 02:30 Total Bilirubin 2.2 H (0.3-1.0) mg/dL AST 101 H (13-39) Units/L ALT 51 (7-52) Units/L Alkaline Phosphatase 107 H (34-104) Units/L Albumin 4.4 (3.5-5.7) g/dL - ABG Interpretation ABG results: PT/INR, D-dimer PT 17.9 Seconds (9.4-12.1) H 03/21/19 02:30 364 ng/mLFEU (0-500) 03/20/19 06:34 - Impressions Impressions Echocardiogram 03/21/19 18:08 Impressions: Technically sub-optimal due to body habitus. Grossly, LV systolic function is mildly reduced. Mildly dilated LV chamber size. Definity echo contrast was used. Event with Definity, not all LV wall segments are optimally visualized. Indeterminate diastolic function. Normal right ventricular structure and function. Bi-atrial enlargement. No significant valvular dysfunction. Unable to estimate RVSP due to suboptimal TR signal. Left Ventricular Wall Motion: Rest Echo Findings The apex, apical inferior, mid inferior, basal inferior, apical anterior, mid anterior, basal anterior, apical septal, mid inferior septal, basal inferior septal, apical lateral, mid anterior lateral, basal anterior lateral, mid anterior septal and basal anterior septal craven were hypokinetic. The mid inferior lateral and basal inferior lateral craven were not visualized. Findings: Study Quality * Technically sub-optimal due to body habitus. ECG Findings * Atrial fibrillation with BBB. Left Ventricle * Definity echo contrast was used. * Indeterminate diastolic function. * Grossly, LV systolic function is mildly reduced. * LV wall thickness and chamber size are normal. * Mildly dilated left ventricle. Right Ventricle * Normal right ventricular structure and function. Left Atrium * Moderately dilated left atrium. Right Atrium * Moderately dilated right atrium. Aortic Valve * Aortic valve not well visualized. * No aortic stenosis. * No aortic regurgitation. Mitral Valve * Mitral valve not well visualized. * No mitral regurgitation. * No mitral stenosis. Tricuspid Valve * Tricuspid valve not well visualized. * Trace tricuspid regurgitation. * Estimated RA pressure is 3 mmHg. Pulmonic Valve * Pulmonic valve not well visualized. * No pulmonic stenosis. * No pulmonic regurgitation. Aorta * Not well visualized. Pulmonary Artery * Pulmonary artery not well visualized. Pericardium * There is no pericardial effusion present. Interatrial Septum * No evidence of PFO by color Doppler. IVC * Normal IVC dimensions and inspiratory collapse. Consult Discharge Plan - Plan Referrals: Austyn Allan MD [Primary Care Provider] - - Attending Attestation I examined this patient and my medical decision-making was reviewed with the Resident Physician on 03/21/19. I agree with the documented findings, disposition and treatment plan as described except to the extent set forth below. Mr Barillas is curently hospitalized for acute exac CHF. He has some congestion consistent with COPD exac as well. Steroids and abx started today. He overall is feeling better. He has less edema. No fever. Lungs diminished with no whe zaira. Agree with assessment and plan as above. Anticipate d/c tomorrow. <Kayy Mazariegos - Last Filed: 03/21/19 22:43> Hospitalist Progress Note - Encounter Date of Encounter: 03/21/19 Time of Encounter: 09:19 - Subjective Interval History: Seen and examined at bedside. He is seated at the edge of his bed. Feels like his breathing is better than when he came to the ED. No chest pain, palpitations, pleuritic chest pain, wheezing, abdominal pain, nausea. Admits to productive cough and chest congestion for last several days. Denies fevers or chills, but states he's felt sweaty. Patient reports he has taken Ventolin and Spiriva inhalers in the past and they seemed to help. - Exam Vitals: Temp Pulse Resp BP Pulse Ox 98.5 F 88 17 132/104 95 03/21/19 05:53 03/21/19 05:53 03/21/19 05:53 03/21/19 05:53 03/21/19 05:53 Exam: General: No acute distress, alert HEENT: head normocephalic/atraumatic, EOMI, PERRL, sclera anicteric, moist mucus membranes Neck: Supple, no lymphadenopathy Cardio: RRR, no murmurs, +S1/S2 Pulm: CTAB, bilateral decreased breath sounds, no wheezing,/rhonchi/rales. Normal respiratory effort. Abdomen: soft, nontender, active bowel sounds, obese, scar from open-heart surgery for CABG noted Extremities: No LE edema, no calf tenderness, no cyanosis or clubbing Neuro: alert and oriented x3, no focal deficits, normal gait, CN II-XII grossly intact, moves all extremities spontaneously Skin: clean, dry, intact, no visible rashes Psych: Appropriate mood and affect. Answers questions appropriately. Cooperative with exam - Assessment and Plan (1) COPD with acute exacerbation Current Visit: Yes Status: Acute Assessment and Plan: Increased shortness of breath and productive cough. Duonebs and albuterol inhaler PRN. Spiriva daily. 5 day course of azithromycin and prednisone. (2) CHF exacerbation Current Visit: Yes Status: Acute Assessment and Plan: Troponin mildly elevated on arrival, then downward trended. BNP 643 on admission. CXR shows mild cardiomegaly, mild vascular congestion, no gross effusion. Echo suboptimal d/t body habitus, grossly LV systolic function is mildly reduced, mildly dilated LV chamber size, biatrial enlargement. Previous echocardiograms in 2016 were also suboptimal/technically poor quality. Not fluid overloaded on exam, no lower extremity edema or rales. - Restart home dose furosemide 40 mg PO daily. (3) Atrial fibrillation Current Visit: Yes Status: Chronic Assessment and Plan: Rate controlled. Continue home xarelto. (4) Chronic coronary artery disease Current Visit: Yes Status: Chronic Assessment and Plan: History of single-vessel CABG. Continue home statin. (5) Hypertension Current Visit: Yes Status: Chronic Assessment and Plan: Controlled. Continue carvedilol, diltiazem, losartan. (6) Hypokalemia Current Visit: Yes Status: Acute Assessment and Plan: Potassium 3.3 (magnesium WNL) - Recheck on morning BMP - Supplement PRN (7) Alcohol abuse Current Visit: Yes Status: Chronic Assessment and Plan: CIWA protocol. Multivitamin with thiamine and folate. - Time Spent with Patient Total time spent is greater than 50% in coordination of care (as documented) at patient's floor/unit and/or counseling patient: Internal Medicine: Result - Labs CBC & Chem 7: 03/21/19 02:30 03/21/19 02:30 Labs: Short CBC 03/21/19 Range/Units 02:30 WBC 4.3 (4.3-11.1) K/mcL Hgb 15.1 (12.9-16.9) g/dL Hct 43.0 (37.5-50.1) % Plt Count 102 L (140-400) K/mcL Neutrophils # 2.9 (1.6-8.9) K/mcL BMP 03/21/19 02:30 Sodium 133 L Potassium 3.3 L Chloride 93 L Carbon Dioxide 29 BUN 8 Creatinine 0.67 L Glucose 113 H Calcium 9.3 Cardiac Enzymes 03/20/19 03/20/19 03/21/19 Range/Units 13:09 18:59 02:30 Troponin I 0.05 H* 0.03 0.03 (< 0.04) ng/mL Liver Function 03/21/19 Range/Units 02:30 Total Bilirubin 2.2 H (0.3-1.0) mg/dL AST 101 H (13-39) Units/L ALT 51 (7-52) Units/L Alkaline Phosphatase 107 H (34-104) Units/L Albumin 4.4 (3.5-5.7) g/dL - ABG Interpretation ABG results: PT/INR, D-dimer PT 17.9 Seconds (9.4-12.1) H 03/21/19 02:30 364 ng/mLFEU (0-500) 03/20/19 06:34 - Impressions Impressions Head CT 03/20/19 06:40 IMPRESSION: No acute intracranial abnormality. D/ / 03/20/2019 08:11:55 Ronny Samaniego MD / derrick Interpreting Provider: Ronny Samaniego MD <Binh Tuttle - Last Filed: 03/21/19 17:04> (1) CHF exacerbation Qualifiers: Heart failure type: systolic Qualified Code(s): I50.23 - Acute on chronic systolic (congestive) heart failure (2) Atrial fibrillation Qualifiers: Atrial fibrillation type: chronic Qualified Code(s): I48.2 - Chronic atrial fibrillation (4) Hypertension Qualifiers: Hypertension type: essential hypertension Qualified Code(s): I10 - Essential (primary) hypertension <Kayy Mazariegos - Last Filed: 03/21/19 22:43> (2) CHF exacerbation Qualifiers: Heart failure type: systolic Qualified Code(s): I50.23 - Acute on chronic systolic (congestive) heart failure (3) Atrial fibrillation Qualifiers: Atrial fibrillation type: chronic Qualified Code(s): I48.2 - Chronic atrial fibrillation (5) Hypertension Qualifiers: Hypertension type: essential hypertension Qualified Code(s): I10 - Essential (primary) hypertension
[2019-03-21] MEDS ORDERED: Perflutren Lipid Microsphere 2 ML VIAL ONE (09:41)
[2019-03-21] MEDS ORDERED: Ipratropium/Albuterol Neb 3 ML IH PRN (11:19)
[2019-03-21] MEDS ORDERED: Azithromycin 250 MG TABLET PO ONE (11:27)
[2019-03-21] MEDS: predniSONE 20 MG TABLET PO SCH (12:20)
[2019-03-21] MEDS: Tiotropium 18 MCG inhalation IH SCH (15:12)
[2019-03-21] MEDS: Thiamine (B-1) 100 MG, Folic Acid 1 MG, MVI, adult with vitamin K 10 ML in 0.9 % Sodi... IVPB SCH (17:13)
[2019-03-22 04:36] LABS: Basophils % 0.3 %; Hematocrit 41.5 % (37.5-50.1); Hemoglobin 13.9 g/dL (12.9-16.9); Immature Granulocytes % 0.4 % (0-4); Lymphocytes # 0.9 K/mcL (0.6-4.6); Lymphocytes % 12.7 %; Mean Corpuscular HGB Conc 33.5 g/dL (31.6-35.5); Mean Corpuscular Hemoglobin 33.3 pg (28.0-33.3); Mean Corpuscular Volume 99.5 fL (83.0-100.0); Mean Platelet Volume 10.5 fL (9.4-12.4); Monocytes # 0.6 K/mcL (0.0-1.3); Monocytes % 8.5 %; Neutrophils # 5.4 K/mcL (1.6-8.9); Platelet Count 112 K/mcL (140-400); Red Blood Count 4.17 M/mcL (4.19-5.50); Red Cell Distribution Width 14.6 % (11.5-14.5); Segmented Neutrophils % 78.1 %
[2019-03-22 04:40] LABS: White Blood Count 6.9 K/mcL (4.3-11.1)
[2019-03-22 04:56] LABS: BUN/Creatinine Ratio 16 (6-26); Blood Urea Nitrogen 13 mg/dL (6-20); Calcium 9.6 mg/dL (8.6-10.3); Carbon Dioxide 29 mEq/L (23-29); Chloride 94 mEq/L (98-107); Glucose 113 mg/dL (70-105); Osmolality,Calculated 277 (280-300); Potassium 3.7 mEq/L (3.5-5.1); Sodium 133 mEq/L (136-145); eGFR For African Americans > 60 (> 60); eGFR For Non-African Americans > 60 (> 60)
[2019-03-22 07:17] VITALS: BP 141/95
[2019-03-22] MEDS: Tiotropium 18 MCG inhalation IH SCH (07:42)
[2019-03-22] MEDS: *HR* Rivaroxaban 10 MG TABLET PO SCH (08:57)
[2019-03-22] MEDS: Famotidine 20 MG TABLET PO SCH (08:57)
[2019-03-22] MEDS: predniSONE 20 MG TABLET PO SCH (08:57)
[2019-03-22] MEDS: Diltiazem CD (24hr) 120 MG CAPSULE PO SCH (08:58)
[2019-03-22] MEDS ORDERED: Furosemide 40 MG TABLET PO SCH (09:00)
[2019-03-22] MEDS ORDERED: Azithromycin 250 MG TABLET PO SCH (09:00)
[2019-03-22 09:02] LABS: Alanine Aminotransferase 46 Units/L (7-52); Albumin 4.4 g/dL (3.5-5.7); Albumin/Globulin Ratio 1.5 (1.1-2.2); Alkaline Phosphatase 99 Units/L (34-104); Aspartate Amino Transferase 69 Units/L (13-39); Bilirubin,Direct 0.3 mg/dL (0.0-0.2); Bilirubin,Indirect 1.2 mg/dL (0.0-1.2); Bilirubin,Total 1.5 mg/dL (0.3-1.0); Globulin 2.9 g/dL (2.4-3.5); Total Protein 7.3 g/dL (6.4-8.9)
--- NOTE | 2019-03-22 09:05 | Discharge Summary ---
<Binh Tuttle - Last Filed: 03/22/19 18:42> Orders not resulted at time of discharge: Pending orders 03/20/19 06:34 ECG 12 lead ECG [ECG] Stat Date of Encounter: 03/22/19 - Discharge Diagnosis (1) CHF exacerbation Status: Acute Qualifiers: Heart failure type: systolic Qualified Code(s): I50.23 - Acute on chronic systolic (congestive) heart failure (2) Atrial fibrillation Status: Chronic Qualifiers: Atrial fibrillation type: chronic Qualified Code(s): I48.2 - Chronic atrial fibrillation (3) Chronic coronary artery disease Status: Chronic (4) Hypertension Status: Chronic Qualifiers: Hypertension type: essential hypertension Qualified Code(s): I10 - Essential (primary) hypertension (5) Alcohol abuse Status: Chronic (6) Hyponatremia Status: Acute (7) Hypokalemia Status: Resolved (8) COPD with acute exacerbation Status: Acute Hospital course: Mr. Barillas is a 53 year old male - Time Spent with Patient Total time spent providing and/or coordinating discharge services: - Discharge Medications Prescriptions: New predniSONE [PredniSONE] 40 mg PO DAILY #3 tablet Tiotropium [Spiriva] 18 mcg IH DAILYR #1 inh Azithromycin [Zithromax] 250 mg PO DAILY #3 tablet Ipratropium/Albuterol Neb [Duoneb] 3 ml IH Q4HR #100 vial.neb Continued Carvedilol [Coreg] 37.5 tab PO BID Nitroglycerin [Nitrostat] 0.4 mg SL Q5MIN PRN PRN Reason: Chest Pain Losartan [Cozaar] 25 mg PO DAILY Furosemide [Lasix] 40 mg PO DAILY raNITIdine HCl [Zantac] 150 mg PO BID Lovastatin [Mevacor] 20 mg PO DAILY Rivaroxaban [Xarelto] 20 mg PO DAILY Albuterol Sulfate [Albuterol Inhaler] 2 puff IH Q4-6H PRN PRN Reason: Shortness Of Breath dilTIAZem HCl [Diltiazem 24Hr ER] 120 mg PO BID Home Medications: Carvedilol [Coreg] 37.5 tab PO BID 03/20/19 [History] Furosemide [Lasix] 40 mg PO DAILY 03/20/19 [History] Losartan [Cozaar] 25 mg PO DAILY 03/20/19 [History] Lovastatin [Mevacor] 20 mg PO DAILY 03/20/19 [History] Nitroglycerin [Nitrostat] 0.4 mg SL Q5MIN PRN 03/20/19 [History] Rivaroxaban [Xarelto] 20 mg PO DAILY 03/20/19 [History] raNITIdine HCl [Zantac] 150 mg PO BID 03/20/19 [History] Albuterol Sulfate [Albuterol Inhaler] 2 puff IH Q4-6H PRN 03/21/19 [History] dilTIAZem HCl [Diltiazem 24Hr ER] 120 mg PO BID 03/21/19 [History] Azithromycin [Zithromax] 250 mg PO DAILY #3 tablet 03/22/19 [Rx] Ipratropium/Albuterol Neb [Duoneb] 3 ml IH Q4HR #100 vial.neb 03/22/19 [Rx] Tiotropium [Spiriva] 18 mcg IH DAILYR #1 inh 03/22/19 [Rx] predniSONE [PredniSONE] 40 mg PO DAILY #3 tablet 03/22/19 [Rx] Allergies/Adverse Reactions: Allergy/AdvReac Type Severity Reaction Status Date / Time No Known Allergies Allergy Verified 03/21/19 17:36 Date of admission: 03/20/19 10:10 Primary care physician: Austyn Allan MD Consults: 03/20/19 18:09 Consult to Cardiac Rehabilitation-Phase1 [CONS] Routine Comment: Reason for Consult: heart failure Call Completed: Yes Consult to Nurse Navigator [CONS] Routine Comment: - Constitutional Vitals: Temp Pulse Resp BP Pulse Ox 98.7 F 124 16 141/95 95 03/22/19 07:12 03/22/19 07:12 03/22/19 07:42 03/22/19 07:12 03/22/19 07:42 - Patient Status Disposition: Home, Self-Care Condition: Good - Discharge Instructions Instructions: Heart Failure (DC), Atrial Fibrillation (DC) Follow Up With: Austyn Allan MD [Primary Care Provider] - Additional Instructions: Call your primary care doctor's office on Sunday, March 24 to make a hospital follow up visit for 5-7 days after discharge from hospital. - Attending Attestation I examined this patient and my medical decision-making was reviewed with the Resident Physician on 03/22/19. I agree with the documented findings, disposition and treatment plan as described except to the extent set forth below. Mr Barillas has been hospitalized for acute exac CHF and COPD. He has improved with treatment. He is breathing at baseline. Exam as above. He is now afebrile and ready for discharge home to complete PO course. <Kayy Mazariegos - Last Filed: 03/22/19 23:22> Orders not resulted at time of discharge: Pending orders 03/20/19 06:34 ECG 12 lead ECG [ECG] Stat 03/22/19 03:57 BMP [Basic Metabolic Panel] AM 0400 Hepatic Panel Routine 03/23/19 04:00 BMP [Basic Metabolic Panel] AM 0400 Complete Blood Count [HEME] AM 0400 03/24/19 04:00 BMP [Basic Metabolic Panel] AM 0400 Complete Blood Count [HEME] AM 0400 Date of Encounter: 03/22/19 Time of Encounter: 08:57 - Discharge Diagnosis (1) COPD with acute exacerbation Priority: Primary Status: Acute (2) CHF exacerbation Priority: Secondary Status: Acute Qualifiers: Heart failure type: systolic Qualified Code(s): I50.23 - Acute on chronic systolic (congestive) heart failure (3) Atrial fibrillation Priority: Secondary Status: Chronic Qualifiers: Atrial fibrillation type: chronic Qualified Code(s): I48.2 - Chronic atrial fibrillation (4) Chronic coronary artery disease Priority: Secondary Status: Chronic (5) Hypertension Priority: Secondary Status: Chronic Qualifiers: Hypertension type: essential hypertension Qualified Code(s): I10 - Essential (primary) hypertension (6) Hypokalemia Priority: Secondary Status: Resolved (7) Alcohol abuse Priority: Secondary Status: Chronic Hospital course: Mr. Barillas is a 53 year old male who presented to the emergency department for evaluation of shortness of breath and productive cough of several days duration with subjective fevers and nausea. Found to have Afib with RVR on presentation with HR 130s and converted to sinus rhythm on his own. Labs notable for slight hyponatremia 133, elevated troponin which returned to norrmal, and BNP 643. CXR showed mild cardiomegaly, prominent perihilar markings suggesting mild vascular congestion, no gross effusion or extrapleural air. There was concern for possible exacerbation of CHF, but echocardiogram suboptimal d/t body habitus, but LV systolic function mildly reduced. Received one time dose of 40 mg IV lasix on presentation. Started on azithromycin and oral prednisone in the hospital, prescriptions to complete a 5 day course of each was sent electronically to his pharmacy as were prescriptions for nebulizer machine with duoneb solution and Spiriva inhaler. Patient was medically stable on day of discharge and was instructed to call his PCP's office to request hospital follow up appointment within 5-7 days of discharge. Pt was in agreement with this plan and all of his questions were answered. - Time Spent with Patient Total time spent providing and/or coordinating discharge services: Date of admission: 03/20/19 10:10 Primary care physician: Austyn Allan MD Consults: 03/20/19 18:09 Consult to Cardiac Rehabilitation-Phase1 [CONS] Routine Comment: Reason for Consult: heart failure Call Completed: Yes Consult to Nurse Navigator [CONS] Routine Comment: - Constitutional Vitals: Temp Pulse Resp BP Pulse Ox 98.7 F 124 16 141/95 95 03/22/19 07:12 03/22/19 07:12 03/22/19 07:42 03/22/19 07:12 03/22/19 07:42 Exam: General: No acute distress, alert HEENT: head normocephalic/atraumatic, EOMI, PERRL, sclera anicteric, moist mucus membranes Neck: Supple, no lymphadenopathy Cardio: RRR, no murmurs, +S1/S2 Pulm: CTAB, bilateral decreased breath sounds, no wheezing,/rhonchi/rales. Normal respiratory effort. Abdomen: soft, nontender, active bowel sounds, obese, scar from open-heart surgery for CABG noted Extremities: No LE edema, no calf tenderness, no cyanosis or clubbing Neuro: alert and oriented x3, no focal deficits, CN II-XII grossly intact, moves all extremities spontaneously Skin: clean, dry, intact, no visible rashes Psych: Appropriate mood and affect. Answers questions appropriately. Cooperative with exam - Patient Status Functional capacity at discharge: independent ambulation Overall status at discharge: patient is back to baseline - Diet and Activity Activity: resume usual activities as tolerated Diet: advance to your usual diet
--- NOTE | 2019-03-22 13:46 | Electrocardiograph Report ---
[address] [address] Test Date: 2019-03-20 Pat Name: Kalyan Barillas Department: 2000 Room: 3A Gender: Woods Boss: : 1965 Requested By: Chaparro Yee Order Number: [id number] Reading MD: Dell Arroyo Measurements Intervals [place] Rate: 98 P: 47 [place]: 155 QRS: 74 QRSD: 74 T: 58 QT: 306 QTc: 361 Interpretive Statements Sinus rhythm Electronically Signed On 03-22-2019 13:44:49 EDT by Dell Arroyo
== END 2019-03-22 12:31 | disposition home or self-care (01) ==
LOC: EMEROOARM 06:28 → CDU 06:28 → SUATTDRO 10:10 → CDU 11:05 → 3ANU 03-21 13:22
PROVIDERS: ADMIT Internal Medicine Nephrology; ATTEND Internal Medicine

== ENCOUNTER 2020-04-14 13:51 | Observation (INO) ==
[2020-04-14] MEDS ORDERED: Naloxone 0.4 MG/ML INJ IVP PRN (17:56)
[2020-04-14] MEDS ORDERED: Perflutren Lipid Microsphere 1.3 ML in 0.9 % Sodium Chloride 8.7 ML IVP PRN (17:59)
[2020-04-14] MEDS ORDERED: *HR* Metoprolol 5 MG/5 ML VIAL IVP PRN (18:42)
[2020-04-14 18:56] LABS: Immature Granulocytes % 0.2 % (0-4); Mean Platelet Volume 11.3 fL (9.4-12.4); Red Blood Count 3.71 M/mcL (4.19-5.50); Red Cell Distribution Width 15.6 % (11.5-14.5)
[2020-04-14 18:58] LABS: Basophils # 0.1 K/mcL (0.0-0.2); Basophils % 1.2 %; Eosinophils # 0.1 K/mcL (0.0-0.6); Eosinophils % 2.5 %; Hematocrit 37.4 % (37.5-50.1); Hemoglobin 12.3 g/dL (12.9-16.9); Immature Platelets 8.8 % (1.1-6.1); Lymphocytes # 1.3 K/mcL (0.6-4.6); Lymphocytes % 27.7 %; Mean Corpuscular HGB Conc 32.9 g/dL (31.6-35.5); Mean Corpuscular Hemoglobin 33.2 pg (28.0-33.3); Mean Corpuscular Volume 100.8 fL (83.0-100.0); Monocytes # 0.3 K/mcL (0.0-1.3); Monocytes % 5.6 %; Nucleated Red Blood Cells 0.4 /100 WBC (0); Segmented Neutrophils % 62.8 %; White Blood Count 4.8 K/mcL (4.3-11.1)
[2020-04-14 19:02] LABS: Platelet Count 79 K/mcL (140-400)
[2020-04-14 19:20] LABS: Macrocytosis Present (Not Present); Platelet Estimate Decreased (Normal)
[2020-04-14 19:31] LABS: Alanine Aminotransferase 98 Units/L (7-52); Albumin 3.5 g/dL (3.5-5.7); Albumin/Globulin Ratio 1.2 (1.1-2.2); Alkaline Phosphatase 146 Units/L (34-104); Aspartate Amino Transferase 273 Units/L (13-39); BUN/Creatinine Ratio 7 (6-26); Bilirubin,Direct 1.4 mg/dL (0.0-0.2); Bilirubin,Indirect 2.4 mg/dL (0.0-1.0); Bilirubin,Total 3.8 mg/dL (0.3-1.0); Blood Urea Nitrogen 5 mg/dL (6-20); Calcium 8.7 mg/dL (8.6-10.3); Carbon Dioxide 23 mEq/L (23-29); Chloride 100 mEq/L (98-107); Globulin 2.9 g/dL (2.4-3.5); Glucose 207 mg/dL (70-105); Magnesium 1.6 mg/dL (1.6-2.6); Osmolality,Calculated 279 (280-300); Phosphorous 2.5 mg/dL (2.7-4.5); Potassium 3.2 mEq/L (3.5-5.1); Sodium 133 mEq/L (136-145); Thyroid Stimulating Hormone 3.638 mcIU/mL (0.340-5.600); Total Protein 6.4 g/dL (6.4-8.9); Troponin I 0.04 ng/mL (< 0.04); eGFR For African Americans > 60 (> 60); eGFR For Non-African Americans > 60 (> 60)
[2020-04-14] MEDS ORDERED: carvediloL 25 MG TABLET PO SCH (21:00)
[2020-04-14] MEDS: carvediloL 25 MG TABLET PO SCH (22:48)
[2020-04-15 08:20] LABS: Immature Granulocytes % 0.4 % (0-4); Segmented Neutrophils % 62.9 %
[2020-04-15 08:22] LABS: Basophils # 0.1 K/mcL (0.0-0.2); Eosinophils # 0.1 K/mcL (0.0-0.6); Eosinophils % 2.8 %; Hematocrit 37.3 % (37.5-50.1); Immature Platelets 11.5 % (1.1-6.1); Lymphocytes # 1.2 K/mcL (0.6-4.6); Mean Corpuscular HGB Conc 32.2 g/dL (31.6-35.5); Mean Corpuscular Hemoglobin 33.3 pg (28.0-33.3); Mean Corpuscular Volume 103.6 fL (83.0-100.0); Mean Platelet Volume 11.9 fL (9.4-12.4); Monocytes # 0.4 K/mcL (0.0-1.3); Monocytes % 7.9 %; Neutrophils # 3.1 K/mcL (1.6-8.9); Red Cell Distribution Width 15.7 % (11.5-14.5); White Blood Count 4.9 K/mcL (4.3-11.1)
[2020-04-15 08:27] LABS: Platelet Count 81 K/mcL (140-400)
[2020-04-15 08:38] LABS: BUN/Creatinine Ratio 5 (6-26); Blood Urea Nitrogen 4 mg/dL (6-20); Calcium 8.4 mg/dL (8.6-10.3); Carbon Dioxide 29 mEq/L (23-29); Chloride 102 mEq/L (98-107); Glucose 105 mg/dL (70-105); Osmolality,Calculated 281 (280-300); Potassium 3.6 mEq/L (3.5-5.1); Sodium 137 mEq/L (136-145); eGFR For African Americans > 60 (> 60); eGFR For Non-African Americans > 60 (> 60)
[2020-04-15] MEDS ORDERED: Perflutren Lipid Microsphere 1.3 ML in 0.9 % Sodium Chloride 8.7 ML IVP PRN (08:48)
[2020-04-15 09:35] LABS: Alanine Aminotransferase 80 Units/L (7-52); Albumin 3.2 g/dL (3.5-5.7); Albumin/Globulin Ratio 1.2 (1.1-2.2); Alkaline Phosphatase 129 Units/L (34-104); Aspartate Amino Transferase 209 Units/L (13-39); Bilirubin,Direct 1.2 mg/dL (0.0-0.2); Bilirubin,Indirect 1.8 mg/dL (0.0-1.0); Globulin 2.7 g/dL (2.4-3.5); Total Protein 5.9 g/dL (6.4-8.9)
[2020-04-15] MEDS: Thiamine (B-1) 100 MG TABLET PO SCH (10:08)
[2020-04-15] MEDS: Folic Acid 1 MG TABLET PO SCH (10:08)
[2020-04-15] MEDS: carvediloL 25 MG TABLET PO SCH (10:08)
[2020-04-15] MEDS ORDERED: *HR* LORazepam 2 MG/ML VIAL IVP ONE (11:24)
[2020-04-15] MEDS ORDERED: Acetaminophen 325 MG TABLET PO PRN (15:44)
[2020-04-15] MEDS ORDERED: *HR* Rivaroxaban 10 MG TABLET PO SCH (17:45)
[2020-04-15] MEDS ORDERED: Ipratropium/Albuterol Neb 3 ML IH SCH (18:00)
[2020-04-15] MEDS: Ipratropium/Albuterol Neb 3 ML IH SCH (22:20)
[2020-04-16] MEDS: Ipratropium/Albuterol Neb 3 ML IH SCH ×2 (03:18→09:49)
[2020-04-16 07:06] LABS: Immature Granulocytes % 0.5 % (0-4); Mean Corpuscular Volume 106.7 fL (83.0-100.0); Red Cell Distribution Width 15.9 % (11.5-14.5)
[2020-04-16 07:08] LABS: Basophils # 0.1 K/mcL (0.0-0.2); Basophils % 0.8 %; Eosinophils # 0.2 K/mcL (0.0-0.6); Eosinophils % 2.6 %; Hematocrit 36.8 % (37.5-50.1); Immature Platelets 9.5 % (1.1-6.1); Lymphocytes # 1.6 K/mcL (0.6-4.6); Lymphocytes % 26.8 %; Mean Corpuscular HGB Conc 32.6 g/dL (31.6-35.5); Mean Corpuscular Hemoglobin 34.8 pg (28.0-33.3); Mean Platelet Volume 11.7 fL (9.4-12.4); Monocytes # 0.6 K/mcL (0.0-1.3); Neutrophils # 3.6 K/mcL (1.6-8.9); Red Blood Count 3.45 M/mcL (4.19-5.50); Segmented Neutrophils % 59.3 %; White Blood Count 6.1 K/mcL (4.3-11.1)
[2020-04-16 07:22] LABS: Platelet Count 88 K/mcL (140-400)
[2020-04-16 07:33] LABS: Alanine Aminotransferase 62 Units/L (7-52); Albumin 3.1 g/dL (3.5-5.7); Albumin/Globulin Ratio 1.1 (1.1-2.2); Alkaline Phosphatase 113 Units/L (34-104); Aspartate Amino Transferase 134 Units/L (13-39); BUN/Creatinine Ratio 5 (6-26); Bilirubin,Total 1.9 mg/dL (0.3-1.0); Blood Urea Nitrogen 4 mg/dL (6-20); Calcium 8.1 mg/dL (8.6-10.3); Carbon Dioxide 29 mEq/L (23-29); Chloride 101 mEq/L (98-107); Globulin 2.7 g/dL (2.4-3.5); Glucose 97 mg/dL (70-105); Iron 70 mcg/dL (65-175); Osmolality,Calculated 279 (280-300); Potassium 3.5 mEq/L (3.5-5.1); Sodium 136 mEq/L (136-145); Total Protein 5.8 g/dL (6.4-8.9); eGFR For African Americans > 60 (> 60); eGFR For Non-African Americans > 60 (> 60)
[2020-04-16 08:04] LABS: Folate 11.8 ng/mL (3.0-16.0)
[2020-04-16] MEDS: Thiamine (B-1) 100 MG TABLET PO SCH (08:17)
[2020-04-16] MEDS: Folic Acid 1 MG TABLET PO SCH (08:17)
[2020-04-16] MEDS ORDERED: Aspirin Enteric Coated 81 MG Tablet PO SCH (09:00)
[2020-04-16 11:00] VITALS: BP 106/69
== END 2020-04-16 12:50 | disposition home or self-care (01) ==
LOC: 3BNU → SUATTDRO 15:21
PROVIDERS: ADMIT Internal Medicine; ATTEND Student in an Organized Health Care Education/Training Program